=== PATIENT | male | born 2000 | race Caucasian/White ===

== ENCOUNTER 2019-01-31 17:58 | Emergency (ER) | payer OTHER ==
[~2019-01-31] VITALS: Ht 180.3 cm; Wt 101.6 kg
[2019-01-31] MEDS ORDERED: CALALOT4 TOP ×2 (20:02→20:06)
[2019-01-31] MEDS ORDERED: PRED20TA PO ×2 (20:02→20:06)
[2019-01-31 20:07] VITALS: BP 130/58
== END 2019-01-31 20:09 | disposition home or self-care (01) ==
LOC: M ED 17:58
DX: L23.7 Allergic contact dermatitis due to plants, except food (principal)